=== PATIENT | male | born 1970 | race Caucasian/White ===

== ENCOUNTER 2016-11-26 16:18 | Emergency (ER) ==
[2016-11-26 16:51] VITALS: BP 144/80
[2016-11-26] MEDS ORDERED: TYLENOL PO ONE (17:01)
--- NOTE | 2016-11-26 17:34 | PROVIDER DOCUMENTATION ---
HPI-General Adult - General Chief Complaint: Fever Stated Complaint: FEVER Time Seen by Provider: 11/26/16 17:27 Source: patient Allergies/Adverse Reactions: Patient Allergies Allergy/AdvReac Type Severity Reaction Status Date / Time No Known Allergies Allergy Verified 11/26/16 17:45 Home Medications: Home Medication List Medication Instructions Recorded Confirmed Last Taken Type Levothyroxine [Synthroid] 88 microgm PO DAILY 08/15/13 11/26/16 11/25/16 11:00 History Amoxicillin [Amoxil] 500 mg PO BID #14 capsule 11/26/16 Unknown Rx Prednisone 20 mg PO DAILY #6 tablet 11/26/16 Unknown Rx - History of Present Illness -Gen Adult Nature of Presenting Problems: This pt presents to ED with c/o high fever, body aches, chills, headache x2 days. He also reports he has vomited 5-6 times today. Denies diarrhea. Location of Pain/Injury: reports: generalized Quality of Pain: reports: aching Severity: reports: moderate Timing: reports: still present Associated Symptoms: reports: fatigue, fever/chills, muscle aches, nausea, vomiting Similar Symptoms Previously?: No Recently seen or treated by another doctor?: No Review of Systems - Adult - REVIEW OF SYSTEMS - ADULT Constitutional: reports: chills, fever, fatique. denies: night sweats Eyes: reports: no symptoms reported. denies: discharge, dry eyes Ears, Nose, Mouth & Throat: reports: throat pain. denies: ear discharge, ear pain Cardiovascular: reports: no symptoms reported. denies: chest pain, edema Respiratory: reports: no symptoms reported. denies: chronic cough, cough Gastrointestinal: reports: nausea, vomiting. denies: abdominal pain, hematemesis Genitourinary: reports: no symptoms reported. denies: dysuria, discharge Musculoskeletal: reports: muscle aches. denies: bone pain, back pain Integumentary: reports: no symptoms reported. denies: hives, hair loss Neurological: reports: no symptoms reported. denies: ataxia, dizziness/vertigo Psychiatric: reports: no symptoms reported. denies: anxiety, anti-depressant use Endocrine: reports: no symptoms reported Hematologic/Lymphatic: reports: no symptoms reported Allergic/Immunologic: reports: no symptoms reported All Other Systems: Reviewed and Negative Past History - Adult - PAST MEDICAL HISTORY-ADULT Review of Records: reports: Old Records Reviewed, Nursing Assessment Review, Medications Reviewed, Social history reviewed & non-contributory. Major Childhood Illnesses: reports: denies history Cardiovascular: reports: hyperlipidemia Respiratory: reports: denies history Gastrointestinal: reports: denies history Obstetrical/Gynecological: reports: denies history Genitourinary: reports: denies history Musculoskeletal: reports: denies history Neurological: reports: denies history Psychiatric: reports: denies history Endocrine/Immune: reports: thyroid disorder Other Conditions: reports: denies history - PRIOR SURGERIES/PROCEDURES Surgical/Procedure History: reports: none - IMMUNIZATION STATUS Childhood Immunizations: UTD Flu Vaccine: UTD - FAMILY HISTORY Family History: reviewed, not pertinent Physical Exam-General - PHYSICAL EXAM-ADULT Initial Vital Signs Reviewed: Yes - CONSTITUTIONAL General Appearance: alert, no apparent distress - EYES Eyes: PERRL/EOMI, pink conjunctivae - HEAD, EARS, NOSE, MOUTH & THROAT HENMT: moist mucous membranes, pharyngeal erythema - NECK Neck: non-tender, full range of motion, supple, lymphadenopathy (anterior cervical) - RESPIRATORY Respiratory: chest non-tender, lungs clear, normal breath sounds, no pleuratic chest pain, no respiratory distress, no accessory muscle use - CARDIOVASCULAR Cardiovascular: normal peripheral pulses, no edema, no gallop, no JVD, no murmur , tachycardia - GASTROINTESTINAL (ABDOMEN) Abdominal Exam: normal bowel sounds, non tender, soft, no organomegaly, no pulsatile mass - MUSCULOSKELETAL Back Exam: normal inspection, no CVA tenderness, no vertebral tenderness Extremity: normal range of motion, non-tender, normal gait, normal inspection - SKIN Integumentary: normal color, normal turgor, warm/dry - NEUROLOGIC Neurologic: grossly normal, no motor/sensory deficits - PSYCHIATRIC Psych/Mental Status: normal mood/affect, normal thought content, normal thought process, oriented x 3 Progress - PLAN OF CARE/RESULTS Progress/Plan/Lab Results: Orders Category Date Time Status INFLUENZA SCREEN A/B Stat Lab 11/26/16 16:53 Completed Acetaminophen [Tylenol] Med 11/26/16 17:01 Discontinued 1,000 mg PO NOW ONE Vital Signs Temp Pulse Resp BP Pulse Ox 11/26/16 16:49 102.9 F H 122 H 20 144/80 96 No Known Allergies Allergy (Verified 11/26/16 17:45) Levothyroxine [Synthroid] 88 microgm PO DAILY 11/28/13 Departure - Departure Time of Disposition Order: 17:49 DIAGNOSIS: Pharyngitis Qualifiers: Pharyngitis/tonsillitis etiology: unspecified etiology Qualified Code(s): J02.9 - Acute pharyngitis, unspecified Disposition: HOME 01 Certified Medical Emergency: Urgent Condition: Good Additional Instructions: Take medication as prescribed. Follow up with your primary care provider. Alternate tylenol and motrin for fever and pain. Rest and stay well hydrated. ED Follow Up Instructions: You have been treated by a care provider in the Emergency Department. These instructions are being provided to you so you can have an understanding of how to care for yourself upon discharge. Upon discharge from the Emergency Department, you are responsible for making arrangements for follow-up care by a physician of your choice. Take all prescribed medications as directed. Return to the Emergency Department immediately for any new or worsening symptoms. You may call the Physician Referral phone number at [phone] to obtain a list of Physicians who are taking new patients. Prescriptions: Amoxicillin [Amoxil] 500 mg PO BID #14 capsule Prednisone 20 mg PO DAILY #6 tablet Attestation - Physician/ VICTORINO Attestation Patient care was provided by Advanced Practice Provider:: Yes Advanced Practice Provider:: Aarno Simons Advanced Practice Provider documentation review:: The Mid-level provider documentation, treatment plan and medical decision making was reviewed by the physician who agrees with all treatment and medical decision making by the MLP.
[2016-11-26] MEDS ORDERED: DECADRON IM ONE (17:51)
== END 2016-11-26 18:06 | disposition home or self-care (01) ==
LOC: ED 16:18
DX: J02.9 Acute pharyngitis, unspecified (principal); R50.9 Fever, unspecified; R51 Headache; R11.2 Nausea with vomiting, unspecified; R53.83 Other fatigue; M79.1 Myalgia; R59.0 Localized enlarged lymph nodes; E78.5 Hyperlipidemia, unspecified; E07.9 Disorder of thyroid, unspecified; Z79.899 Other long term (current) drug therapy
CPT/HCPCS: 87804